=== PATIENT | male | born 1960 | race Caucasian/White ===

== ENCOUNTER 2022-03-08 15:06 | Inpatient (IN) | payer BC ==
[~2022-03-08] VITALS: Ht 175.3 cm; Wt 80.7 kg
[~2022-03-08 15:06] MED LIST: ACET-2081 PO; ASPI-612 PO; DOXY25TA PO
[2022-03-08] MEDS ORDERED: KETOROLAC TROMETHAMINE 30 MG INJ IM ONE (15:30)
[2022-03-08] MEDS ORDERED: KETOROLAC TROMETHAMINE 30 MG INJ ONE (15:39)
[2022-03-08] MEDS ORDERED: BUPR1FIL SL ×2 (16:38→18:39)
[2022-03-08] MEDS ORDERED: NALO1DIS2 IM (16:38)
[2022-03-08] MEDS ORDERED: ALPR2TAB7 PO (16:38)
[2022-03-08] MEDS ORDERED: LIDOCAINE 5% PATCH TD ONE (17:15)
[2022-03-08] MEDS ORDERED: ACETAMINOPHEN ES 500 MG TABLET PO ONE (17:15)
[2022-03-08 17:27] LABS: POTASSIUM 3.8 mmol/L (3.5-5.1)
[2022-03-08 17:54] LABS: HEMATOCRIT 44.6 % (36.7-47.1); MEAN CORPUSCULAR HEMOGLOBIN 33.2 uug (23.8-33.4); MEAN CORPUSCULAR VOLUME 98.4 fL (73.0-96.2); PLATELET COUNT (AUTO) 257 K/uL (152-348)
[2022-03-08] MEDS ORDERED: PROP40TA7 PO (18:39)
[2022-03-08] MEDS ORDERED: PRIM50TA27 PO (18:39)
[2022-03-08] MEDS ORDERED: MORPHINE SULFATE 4 MG/1 ML DISP.SYRIN IV ONE (18:45)
--- NOTE | 2022-03-08 18:50 | NUR ---
Dr. Chery on panel call with Belen Grimm NP.
[2022-03-08] MEDS ORDERED: MORPHINE SULFATE 2 MG/1 ML DISP.SYRIN ONE (18:56)
[2022-03-08] MEDS ORDERED: MORPHINE SULFATE 4 MG/1 ML DISP.SYRIN ONE (18:56)
[2022-03-08] MEDS ORDERED: REMEDY ESSENTIAL ZINC PASTE 113 GM TP PRN (19:45)
[2022-03-08] MEDS ORDERED: MAGNESIUM HYDROXIDE 30 ML LIQUID UDC PO PRN (19:45)
[2022-03-08] MEDS ORDERED: ACETAMINOPHEN 325 MG TABLET PO PRN (19:45)
[2022-03-08] MEDS ORDERED: IV D5 1/2 NS 1000 ML 1,000 ML IV PRN (19:45)
[2022-03-08] MEDS ORDERED: NALOXONE HCL 0.4 MG/ML AMPUL IV PRN (20:00)
--- NOTE | 2022-03-08 20:59 | NUR ---
Report given to Henna RICHMOND
[2022-03-08] MEDS ORDERED: HYDROMORPHONE 2 MG/1 ML DISP.SYRIN IV PRN (22:00)
[2022-03-08] MEDS ORDERED: HYDROMORPHONE 1 MG/1 ML DISP.SYRIN ONE (22:01)
[2022-03-08] MEDS ORDERED: ALPRAZOLAM 0.5 MG TABLET ONE (22:10)
[2022-03-08] MEDS: ALPRAZOLAM 0.5 MG TABLET PO SCH (22:12)
[2022-03-08 23:37] VITALS: BP 127/73
[2022-03-09] MEDS: HYDROMORPHONE 1 MG/1 ML DISP.SYRIN IV PRN ×3 (00:26→10:34)
[2022-03-09 04:00] VITALS: BP 150/81
[2022-03-09 07:06] LABS: HEMATOCRIT 44.6 % (36.7-47.1); MEAN CORPUSCULAR HEMOGLOBIN 33.3 uug (23.8-33.4); MEAN CORPUSCULAR VOLUME 98.1 fL (73.0-96.2); PLATELET COUNT (AUTO) 232 K/uL (152-348)
[2022-03-09 07:17] LABS: MAGNESIUM 2.2 mg/dL (1.8-2.4); PHOSPHOROUS 3.8 mg/dL (2.5-4.9); POTASSIUM 4.1 mmol/L (3.5-5.1)
--- NOTE | 2022-03-09 07:22 | NUR ---
SHIFT REPORT; REPORT GIVEN BY ER NURSE MAGNUS PT IS ALERT AND ORIENTED X4 PT WAS GOING TO GET THE MAIL FROM DRIVE FELL AND BROKE RT HUMERUS. PT IS NPO SCHEDULED FOR SURGERY THIS AM BY DOCTOR MANOJ. PT HAS IVF OF D51/2NS INFUSING AT 50ML AND HOUR NO SIGNS ADVERSE REACTION NOTED. NO SIGNS OF SKIN BREAKDOWN IV IS THE LEFT HAND 20G. PT LAST DOSE OF DILAUDID GIVEN AT 0558 AND CHECKED AT 0628 NO ADVERSE REACTION FROM MEDICATION WILL ENDORSE TO AM NURSE
[2022-03-09 07:29] LABS: THYROID STIMULATING HORMONE 2.135 mIU/mL (0.358-3.740)
[2022-03-09] MEDS: PROPRANOLOL HCL 40 MG TABLET PO SCH ×2 (09:00→18:17)
[2022-03-09] MEDS: PRIMIDONE 50 MG TABLET PO SCH ×2 (09:00→18:12)
[2022-03-09] MEDS: ALPRAZOLAM 0.5 MG TABLET PO SCH ×2 (09:00→21:41)
--- NOTE | 2022-03-09 10:00 | NUR ---
Belen Grimm TRANSPORTATION MECHANIC in the unit, per TRANSPORTATION MECHANIC hold PO meds for now since NPO prior scheduled surgery.
[2022-03-09] MEDS ORDERED: VANCOMYCIN 1000 MG VIAL ONE (10:03)
[2022-03-09] MEDS: PANTOPRAZOLE SODIUM 40 MG VIAL IV SCH (10:37)
[2022-03-09] MEDS ORDERED: LORAZEPAM 2 MG/1 ML VIAL IV PRN (11:00)
[2022-03-09] MEDS ORDERED: HYDROMORPHONE 1 MG/1 ML DISP.SYRIN IV PRN (11:02)
[2022-03-09] MEDS ORDERED: ATOR40TA PO (11:21)
[2022-03-09] MEDS ORDERED: FLUO20CA36 PO (11:21)
[2022-03-09] MEDS ORDERED: PANT40TA49 PO (11:21)
[2022-03-09] MEDS ORDERED: CLON0.1T PO (11:21)
[2022-03-09] MEDS: NICOTINE 14 MG/24HR PATCH TD SCH (11:30)
[2022-03-09 11:36] VITALS: BP 142/77
[2022-03-09] MEDS ORDERED: HYDROMORPHONE 2 MG/1 ML DISP.SYRIN ONE (11:54)
[2022-03-09] MEDS ORDERED: MIDAZOLAM HCL 2 MG/2 ML VIAL ONE (11:55)
[2022-03-09] MEDS ORDERED: ROCURONIUM BROMIDE 50 MG/5 ML VIAL ONE (11:55)
[2022-03-09] MEDS ORDERED: GLYCOPYRROLATE 0.2 MG/ML VIAL ONE ×2 (13:30)
[2022-03-09] MEDS ORDERED: KETOROLAC TROMETHAMINE 30 MG INJ ONE (13:30)
[2022-03-09] MEDS ORDERED: LIDOCAINE-MPF 2% 5 ML VIAL ONE (13:30)
[2022-03-09] MEDS ORDERED: CEFAZOLIN 1 G VIAL ONE ×2 (13:30)
[2022-03-09] MEDS ORDERED: ONDANSETRON 4 MG/2 ML VIAL ONE ×2 (13:30→13:52)
[2022-03-09] MEDS ORDERED: NEOSTIGMINE METHYLSULFATE 10 MG/10 ML VIAL ONE (13:30)
[2022-03-09] MEDS ORDERED: PROPOFOL 200 MG/20 ML BOTTLE ONE ×2 (13:30)
[2022-03-09] MEDS ORDERED: DEXAMETHASONE SOD PHOSPHATE 4 MG INJ ONE (13:30)
[2022-03-09] MEDS ORDERED: HYDROMORPHONE 1 MG/1 ML DISP.SYRIN ONE ×2 (13:41→14:18)
[2022-03-09] MEDS ORDERED: IV D5W-0.45% NS +20 KCL 1,000 ML IV ONE (14:31)
--- NOTE | 2022-03-09 14:55 | NUR ---
Patient back in the room S/P right hip bipolar replacement. He is awake, alert, oriented x4, not in any form of distress on 2LPM via nasal cannula. He denies any pain or discomfort at this time. VS stable. Surgical dressing intact and dry. Abduction pillow in place.
[2022-03-09 15:43] VITALS: BP 131/82
[2022-03-09 19:21] VITALS: BP 154/88
[2022-03-09] MEDS: MORPHINE SULFATE 4 MG/1 ML DISP.SYRIN IV PRN (19:51)
[2022-03-09] MEDS: CEFAZOLIN 1 G in IV DEXTROSE 5% 50 ML IV SCH (21:41)
[2022-03-09] MEDS: ATORVASTATIN 40 MG TABLET PO SCH (21:41)
[2022-03-10] MEDS: MORPHINE SULFATE 4 MG/1 ML DISP.SYRIN IV PRN ×3 (02:54→19:50)
--- NOTE | 2022-03-10 05:13 | NUR ---
SHIFT NOTE PT IS ALERT AND ORIENTEDX4 PT HAS IS STATUS POST RT HIP BIPOLAR REPLACEMENT. PT HAS ABDUCTOR PILLOWS AND SCD TOLERATING WELL PLT HAD 1500 OF JEAN-PIERRE URINE DURING WHOLE SHIFT PT GIVEN PAIN MEDICATION OF 4MG OF MORPHINE TOLERATED WELL NO ADVERSE REACTION FROM MEDICATION AND ANTIBIOTIC.PT LINEN AN BED CHANGED PT WATCHED UP NO SIGNS OF DISTRESS NOTEDL
[2022-03-10] MEDS: CEFAZOLIN 1 G in IV DEXTROSE 5% 50 ML IV SCH (06:12)
[2022-03-10 07:24] LABS: CREATININE 0.9 mg/dL (0.6-1.3); POTASSIUM 4.3 mmol/L (3.5-5.1)
[2022-03-10 07:29] LABS: HEMATOCRIT 40.4 % (36.7-47.1); MEAN CORPUSCULAR HEMOGLOBIN 33.4 uug (23.8-33.4); MEAN CORPUSCULAR VOLUME 99.2 fL (73.0-96.2); PLATELET COUNT (AUTO) 205 K/uL (152-348)
[2022-03-10] MEDS ORDERED: PANTOPRAZOLE SODIUM 40 MG TABLET.DR PO SCH (09:00)
[2022-03-10] MEDS ORDERED: CLONIDINE HCL 0.1 MG TABLET PO SCH (09:00)
[2022-03-10] MEDS ORDERED: ALPRAZOLAM 0.5 MG TABLET PO SCH (09:00)
[2022-03-10] MEDS: PROPRANOLOL HCL 20 MG TABLET PO SCH ×2 (09:21→17:08)
[2022-03-10] MEDS: FLUOXETINE HCL 20 MG CAPSULE PO SCH (09:21)
[2022-03-10] MEDS: PANTOPRAZOLE SODIUM 40 MG VIAL IV SCH (09:21)
[2022-03-10] MEDS: NICOTINE 14 MG/24HR PATCH TD SCH (09:21)
[2022-03-10] MEDS: PRIMIDONE 50 MG TABLET PO SCH ×2 (09:21→17:05)
[2022-03-10 11:37] VITALS: BP 129/69
[2022-03-10] MEDS: HYDROMORPHONE 1 MG/1 ML DISP.SYRIN IV PRN ×2 (12:20→17:08)
[2022-03-10] MEDS: METHOCARBAMOL 500 MG TABLET PO SCH ×2 (13:42→17:05)
[2022-03-10 16:00] VITALS: BP 138/74
[2022-03-10] MEDS: RIVAROXABAN 10 MG TABLET PO SCH (17:05)
[2022-03-10 20:00] VITALS: BP 157/82
[2022-03-10] MEDS: ONDANSETRON 4 MG/2 ML VIAL IV PRN (20:12)
[2022-03-10] MEDS: ATORVASTATIN 40 MG TABLET PO SCH (21:12)
[2022-03-10] MEDS: ALPRAZOLAM 0.5 MG TABLET PO SCH (21:12)
[2022-03-11] MEDS: MAG HYDROX/AL HYDROX/SIMETH 30 ML LIQUID UDC PO PRN ×3 (01:51→21:18)
[2022-03-11] MEDS: HYDROMORPHONE 1 MG/1 ML DISP.SYRIN IV PRN ×3 (01:53→16:07)
[2022-03-11 04:00] VITALS: BP 157/78
[2022-03-11] MEDS: PANTOPRAZOLE SODIUM 40 MG TABLET.DR PO SCH (06:07)
[2022-03-11] MEDS: POTASSIUM CHLORIDE 20 MEQ in IV D5 1/2 NS 1000 ML 1,000 ML IV PRN (06:07)
[2022-03-11] MEDS: MORPHINE SULFATE 4 MG/1 ML DISP.SYRIN IV PRN (06:09)
[2022-03-11 06:27] LABS: HEMATOCRIT 38.4 % (36.7-47.1); MEAN CORPUSCULAR HEMOGLOBIN 33.8 uug (23.8-33.4); MEAN CORPUSCULAR VOLUME 97.7 fL (73.0-96.2); PLATELET COUNT (AUTO) 189 K/uL (152-348)
[2022-03-11 06:51] LABS: CREATININE 0.9 mg/dL (0.6-1.3); POTASSIUM 3.9 mmol/L (3.5-5.1)
[2022-03-11] MEDS: FLUOXETINE HCL 20 MG CAPSULE PO SCH (08:26)
[2022-03-11] MEDS: PRIMIDONE 50 MG TABLET PO SCH ×2 (08:27→16:05)
[2022-03-11] MEDS: METHOCARBAMOL 500 MG TABLET PO SCH ×3 (08:27→16:05)
[2022-03-11] MEDS: NICOTINE 14 MG/24HR PATCH TD SCH (08:28)
[2022-03-11] MEDS: PROPRANOLOL HCL 20 MG TABLET PO SCH ×2 (08:29→16:05)
[2022-03-11] MEDS: ONDANSETRON 4 MG/2 ML VIAL IV PRN ×2 (09:17→21:18)
[2022-03-11 11:36] VITALS: BP 110/65
[2022-03-11 16:00] VITALS: BP 140/84
[2022-03-11] MEDS: RIVAROXABAN 10 MG TABLET PO SCH (17:23)
--- NOTE | 2022-03-11 19:20 | NUR ---
patient is alert, oriented x4, no sob, respirations are even nonlabored,skin warm and dry to touch, right hip incision dressing is clean and dry, no active bleeding noted at the dressing, patient is tolerating oral meals well, patient stated he does not need the fluids, refused IV fluids, risks and benefits explained, patient verbalized understanding of it. ambulated with PT, tolerated well. no acute distress noted.
[2022-03-11 20:00] VITALS: BP 134/78
[2022-03-11] MEDS: ATORVASTATIN 40 MG TABLET PO SCH (21:18)
[2022-03-11] MEDS: ALPRAZOLAM 0.5 MG TABLET PO SCH (21:18)
[2022-03-12] MEDS: HYDROMORPHONE 1 MG/1 ML DISP.SYRIN IV PRN ×5 (02:14→20:18)
[2022-03-12 03:37] VITALS: BP 130/75
[2022-03-12] MEDS: PANTOPRAZOLE SODIUM 40 MG TABLET.DR PO SCH (06:06)
[2022-03-12 07:26] LABS: HEMATOCRIT 37.7 % (36.7-47.1); MEAN CORPUSCULAR VOLUME 97.6 fL (73.0-96.2); PLATELET COUNT (AUTO) 247 K/uL (152-348)
[2022-03-12] MEDS: PRIMIDONE 50 MG TABLET PO SCH ×2 (08:54→17:21)
[2022-03-12] MEDS: FLUOXETINE HCL 20 MG CAPSULE PO SCH (08:54)
[2022-03-12] MEDS: METHOCARBAMOL 500 MG TABLET PO SCH ×3 (08:54→17:21)
[2022-03-12] MEDS: NICOTINE 14 MG/24HR PATCH TD SCH (08:54)
[2022-03-12] MEDS: PROPRANOLOL HCL 20 MG TABLET PO SCH ×2 (08:58→17:25)
[2022-03-12] MEDS: POTASSIUM CHLORIDE 20 MEQ in IV D5 1/2 NS 1000 ML 1,000 ML IV PRN (10:37)
[2022-03-12 11:45] VITALS: BP 120/78
[2022-03-12] MEDS: ONDANSETRON 4 MG/2 ML VIAL IV PRN (13:31)
[2022-03-12] MEDS: MAG HYDROX/AL HYDROX/SIMETH 30 ML LIQUID UDC PO PRN (13:31)
[2022-03-12 16:21] VITALS: BP 137/79
[2022-03-12] MEDS: RIVAROXABAN 10 MG TABLET PO SCH (17:25)
[2022-03-12 20:00] VITALS: BP 136/84
[2022-03-12] MEDS: ALPRAZOLAM 0.5 MG TABLET PO SCH (20:18)
[2022-03-12] MEDS: ATORVASTATIN 40 MG TABLET PO SCH (20:18)
[2022-03-13] MEDS: HYDROMORPHONE 1 MG/1 ML DISP.SYRIN IV PRN ×4 (02:58→15:20)
[2022-03-13] MEDS: ONDANSETRON 4 MG/2 ML VIAL IV PRN ×2 (02:59→09:28)
[2022-03-13 04:00] VITALS: BP 131/71
[2022-03-13] MEDS: PANTOPRAZOLE SODIUM 40 MG TABLET.DR PO SCH (06:23)
[2022-03-13] MEDS: FLUOXETINE HCL 20 MG CAPSULE PO SCH (08:41)
[2022-03-13] MEDS: NICOTINE 14 MG/24HR PATCH TD SCH (08:42)
[2022-03-13] MEDS: PRIMIDONE 50 MG TABLET PO SCH ×2 (08:42→17:14)
[2022-03-13] MEDS: METHOCARBAMOL 500 MG TABLET PO SCH ×3 (08:42→17:14)
[2022-03-13] MEDS: PROPRANOLOL HCL 20 MG TABLET PO SCH ×2 (08:47→17:18)
[2022-03-13] MEDS: MAG HYDROX/AL HYDROX/SIMETH 30 ML LIQUID UDC PO PRN (09:28)
[2022-03-13 11:16] VITALS: BP 117/61
[2022-03-13 15:07] VITALS: BP 120/72
[2022-03-13] MEDS: RIVAROXABAN 10 MG TABLET PO SCH (17:15)
[2022-03-13 17:18] VITALS: BP 126/73
--- NOTE | 2022-03-13 18:19 | NUR ---
Patient is stable at discharge and transferring via ambulance right now to [facility]
== END 2022-03-13 18:15 | DRG 522 ==
LOC: ER 15:08 → MEDSURG3 17:51
PROVIDERS: ADMIT Registered Nurse; ATTEND Nurse Practitioner Acute Care
PROC: 0SRR0JA Replacement of Right Hip Joint, Femoral Surface with Synthetic Substitute, Uncemented, Open Approach (ICD-10-PCS; principal; 2022-03-09)
DX: S72.001A Fracture of unspecified part of neck of right femur, initial encounter for closed fracture (principal); G89.4 Chronic pain syndrome; I10 Essential (primary) hypertension; D72.829 Elevated white blood cell count, unspecified; G25.0 Essential tremor; F17.210 Nicotine dependence, cigarettes, uncomplicated; M40.204 Unspecified kyphosis, thoracic region; W01.0XXA Fall on same level from slipping, tripping and stumbling without subsequent striking against object, initial encounter; Y92.014 Private driveway to single-family (private) house as the place of occurrence of the external cause; M40.294 Other kyphosis, thoracic region; R00.1 Bradycardia, unspecified; Z79.82 Long term (current) use of aspirin; Z20.822 Contact with and (suspected) exposure to COVID-19
CPT/HCPCS: 36415; 71045; 73501; 73502; 73700; 83735; 84100; 84443; 85025; 85730; 93005; A4649; A4663; A9150; C1776; C9113; G0378; J0690; J1100; J1170; J1885; J2060; J2250; J2270; J2405; J3370; J3480; J3490

== ENCOUNTER 2022-06-08 04:45 | Inpatient (IN) | payer BC ==
[~2022-06-08] VITALS: Ht 172.7 cm; Wt 80.7 kg
[~2022-06-08 04:45] MED LIST changes: -ACET-2081 PO; +ALPR2TAB7 PO; -ASPI-612 PO; +ATOR40TA PO; +BUPR1FIL SL; +CLON0.1T PO; -DOXY25TA PO; +FLUO20CA36 PO; +NALO1DIS2 IM; +PANT40TA49 PO; +PRIM50TA27 PO; +PROP40TA7 PO
--- NOTE | 2022-06-08 04:47 | NUR ---
Dr. Miller at bedside. [facility].
[2022-06-08] MEDS ORDERED: IV NORMAL SALINE 500 ML BAG IV ONE (05:00)
[2022-06-08] MEDS ORDERED: ONDANSETRON 4 MG/2 ML VIAL IV ONE (05:00)
[2022-06-08] MEDS ORDERED: ONDANSETRON 4 MG/2 ML VIAL ONE (05:16)
[2022-06-08 05:19] LABS: HEMATOCRIT 32.7 % (36.7-47.1); MEAN CORPUSCULAR HEMOGLOBIN 30.2 uug (23.8-33.4); MEAN CORPUSCULAR VOLUME 91.6 fL (73.0-96.2); PLATELET COUNT (AUTO) 323 K/uL (152-348)
[2022-06-08 05:28] LABS: CREATININE 1.3 mg/dL (0.6-1.3)
[2022-06-08] MEDS ORDERED: CLON0.1T PO (05:30)
[2022-06-08 05:34] LABS: BILIRUBIN,DIRECT 0.2 mg/dL (0.0-0.2); BILIRUBIN,TOTAL 0.6 mg/dL (0.2-1.0)
--- NOTE | 2022-06-08 06:00 | NUR ---
Dr. Miller has requested a call for Dr. Serrano.
--- NOTE | 2022-06-08 06:45 | NUR ---
Dr. Serrano has not returned the call. Dr. Johnson Miller will call around 0700.
--- NOTE | 2022-06-08 07:00 | NUR ---
Patient still very sleeply from the affects of the fentayl give [employer] by paramedics, but is able to respond when name is called.
--- NOTE | 2022-06-08 07:07 | NUR ---
Report given to BASILIO Schuster.
--- NOTE | 2022-06-08 07:25 | NUR ---
Patient resting comfortably in bed, easily arousable. No acute distress noted. Will continue to monitor patient.
--- NOTE | 2022-06-08 07:30 | NUR ---
Paged Dr. Serrano for doctor to doctor call.
--- NOTE | 2022-06-08 07:54 | NUR ---
Paged Dr. Serrano again for doctor to doctor call. Awaiting a call back.
--- NOTE | 2022-06-08 07:54 | NUR ---
Patient using urinal to urinate.
--- NOTE | 2022-06-08 08:04 | NUR ---
Called [facility] for panel call.
--- NOTE | 2022-06-08 08:39 | NUR ---
Paged Dr. Marshall again for panel call. Awaiting call back.
--- NOTE | 2022-06-08 10:25 | NUR ---
Gave report to BASILIO Stapleton.
--- NOTE | 2022-06-08 10:34 | NUR ---
Patient to go to room 327
--- NOTE | 2022-06-08 11:00 | NUR ---
Patient transferred to telemetry unit accompanied by RN.
[2022-06-08] MEDS: HYDROMORPHONE 1 MG/1 ML DISP.SYRIN IV PRN ×3 (12:32→21:27)
[2022-06-08 16:00] VITALS: BP 127/69
[2022-06-08] MEDS: PRIMIDONE 50 MG TABLET PO SCH (16:38)
[2022-06-08 20:00] VITALS: BP 122/66
[2022-06-08] MEDS ORDERED: ONDANSETRON 4 MG/2 ML VIAL IV PRN (20:15)
[2022-06-08] MEDS ORDERED: ACETAMINOPHEN 650 MG SUPP.RECT RC PRN (20:15)
[2022-06-08] MEDS: ATORVASTATIN 40 MG TABLET PO SCH (21:01)
[2022-06-08] MEDS: ENOXAPARIN SODIUM 40 MG/0.4 ML DISP.SYRIN SQ SCH (21:06)
[2022-06-09] MEDS: HYDROMORPHONE 1 MG/1 ML DISP.SYRIN IV PRN (02:13)
[2022-06-09] MEDS: HYDROMORPHONE 2 MG/1 ML DISP.SYRIN IV PRN ×6 (03:53→20:17)
[2022-06-09 04:00] VITALS: BP 141/70
[2022-06-09] MEDS ORDERED: PANTOPRAZOLE SODIUM 40 MG TABLET.DR PO SCH (07:00)
[2022-06-09 07:22] LABS: HEMATOCRIT 32.1 % (36.7-47.1); MEAN CORPUSCULAR HEMOGLOBIN 29.8 uug (23.8-33.4); MEAN CORPUSCULAR VOLUME 91.5 fL (73.0-96.2); PLATELET COUNT (AUTO) 337 K/uL (152-348)
--- NOTE | 2022-06-09 07:30 | NUR ---
Sleeping, appears comfortable. Tele SR 61
[2022-06-09 07:47] LABS: IRON, SERUM 18 ug/dL (50-175)
[2022-06-09 07:53] LABS: ALANINE AMINOTRANSFERASE 24 U/L (16-63); ALKALINE PHOSPHATASE 133 U/L (50-136); ASPARTATE AMINOTRANSFERASE 26 U/L (15-37); BILIRUBIN,TOTAL 0.3 mg/dL (0.2-1.0); CARBON DIOXIDE 30 mmol/L (21-32); CHLORIDE 106 mmol/L (98-107); CREATININE 0.9 mg/dL (0.6-1.3); GLUCOSE 96 mg/dL (74-106); MAGNESIUM 1.9 mg/dL (1.8-2.4); POTASSIUM 4.3 mmol/L (3.5-5.1); TOTAL PROTEIN, SERUM 6.1 g/dL (6.4-8.2); UREA NITROGEN, BLOOD 14 mg/dL (7-18)
[2022-06-09 07:54] LABS: CHOLESTEROL 99 mg/dL (<200); HDL CHOLESTEROL 33 mg/dL (40-60); TRIGLYCERIDES 58 MG/DL (30-150)
[2022-06-09] MEDS: PRIMIDONE 50 MG TABLET PO SCH ×2 (08:38→17:15)
[2022-06-09] MEDS: PANTOPRAZOLE SODIUM 40 MG VIAL IV SCH (08:38)
[2022-06-09] MEDS: FLUOXETINE HCL 20 MG CAPSULE PO SCH (08:40)
[2022-06-09 11:52] VITALS: BP 143/76
--- NOTE | 2022-06-09 12:30 | NUR ---
Spoke with Dr. Serrano, discussed imaging result and plan of care with orders. X ray right distal femur and venous doppler RLE done at bedside. PRN pain medication given as ordered
--- NOTE | 2022-06-09 14:35 | NUR ---
X ray right distal femur showed fracture. Dr. Serrano informed with orders for consent ORIF right distal femur fracture, signed by patient
[2022-06-09] MEDS: NICOTINE 14 MG/24HR PATCH TD SCH (15:46)
[2022-06-09 15:50] VITALS: BP 124/71
--- NOTE | 2022-06-09 15:50 | NUR ---
Reports of pain RLE, medicated with Dilaudid 2 mg IV. Nicotine patch started as ordered
--- NOTE | 2022-06-09 18:45 | NUR ---
Voided freely per urinal. Repositioned in bed comfortably.
[2022-06-09] MEDS: ATORVASTATIN 40 MG TABLET PO SCH (20:20)
[2022-06-09] MEDS: ENOXAPARIN SODIUM 40 MG/0.4 ML DISP.SYRIN SQ SCH (20:20)
[2022-06-09 20:38] VITALS: BP 113/56
[2022-06-09] MEDS: ALPRAZOLAM 0.5 MG TABLET PO PRN (23:15)
[2022-06-10 00:21] VITALS: BP 124/64
[2022-06-10] MEDS: HYDROMORPHONE 2 MG/1 ML DISP.SYRIN IV PRN ×5 (02:35→20:57)
--- NOTE | 2022-06-10 02:45 | NUR ---
Pt complaining of 8/10 pain on RLE. Dilaudid 2mg given as ordered. Started NPO at midnight.
[2022-06-10 04:20] VITALS: BP 118/61
[2022-06-10 06:59] LABS: HEMATOCRIT 30.6 % (36.7-47.1); MEAN CORPUSCULAR HEMOGLOBIN 29.9 uug (23.8-33.4); MEAN CORPUSCULAR VOLUME 90.8 fL (73.0-96.2); PLATELET COUNT (AUTO) 314 K/uL (152-348)
[2022-06-10 07:14] LABS: CREATININE 0.7 mg/dL (0.6-1.3); MAGNESIUM 1.9 mg/dL (1.8-2.4); PHOSPHOROUS 3.2 mg/dL (2.5-4.9); POTASSIUM 4.1 mmol/L (3.5-5.1)
[2022-06-10 08:00] VITALS: BP 134/72
[2022-06-10] MEDS: PANTOPRAZOLE SODIUM 40 MG VIAL IV SCH (08:36)
[2022-06-10] MEDS: FLUOXETINE HCL 20 MG CAPSULE PO SCH (08:36)
[2022-06-10] MEDS: PRIMIDONE 50 MG TABLET PO SCH ×2 (08:36→17:12)
[2022-06-10] MEDS: NICOTINE 14 MG/24HR PATCH TD SCH (09:10)
--- NOTE | 2022-06-10 09:24 | NUR ---
pt was given Dilaudid 2mg [id number] for rig leg pain. will reassess in 3mins for effectiveness.
[2022-06-10] MEDS ORDERED: BUPIVACAINE PF 0.5% 30 ML VIAL ONE (09:26)
--- NOTE | 2022-06-10 09:37 | NUR ---
pt was pickers material handlers by surgery team. vital wnl. pt will undergone orif of R distal femur.
[2022-06-10] MEDS ORDERED: HYDROMORPHONE 2 MG/1 ML DISP.SYRIN ONE (10:31)
[2022-06-10] MEDS ORDERED: KETAMINE HCL 500 MG/10 ML INJ ONE (10:31)
[2022-06-10] MEDS ORDERED: FAMOTIDINE. 20 MG/2 ML VIAL IV ONE (10:32)
[2022-06-10] MEDS ORDERED: BUPIVACAINE HCL/DEX-WATER/PF 0.75%, 2 ML AMPUL ONE (10:36)
[2022-06-10] MEDS ORDERED: LABETALOL HCL 100 MG/20 ML VIAL ONE (11:51)
[2022-06-10] MEDS ORDERED: HYDROMORPHONE 1 MG/1 ML DISP.SYRIN ONE ×2 (13:07→13:35)
[2022-06-10] MEDS ORDERED: MORPHINE SULFATE 2 MG/1 ML DISP.SYRIN ONE (14:07)
[2022-06-10] MEDS ORDERED: MORPHINE SULFATE 4 MG/1 ML DISP.SYRIN IV PRN (14:15)
[2022-06-10] MEDS ORDERED: HYDROCODONE/APAP 10-325 MG TABLET PO PRN (14:15)
[2022-06-10] MEDS ORDERED: OXYCODONE HCL 5 MG TABLET ONE (14:35)
--- NOTE | 2022-06-10 15:10 | NUR ---
SURGERY DONE. PT ARRIVED AT THE UNIT. REPORT RECEIVED FROM ARMIDA RICHMOND. S/P R ORIF FEMUR DISTAL. PER SURGERY PT WAS GIVEN DILAUDID 2MG ,MORPHINE 4MG AND OXYR 5MG FOR PAIN MANAGEMENT. PT VITALS WNL. NO RESPIRATORY DISTRESS NOTED. PT IS CALM AND RELAX. ICE PACK ON R HIP IN PLACED. CONTINUE ANCEF 1G Q8HR X 3 DOSE. 2L NC FOR COMFORT. NWB R LEG PER SURGEON. WILL CONT TO ACCESS.
[2022-06-10] MEDS: IV D5W-0.45% NS +20 KCL 1,000 ML IV PRN (15:44)
[2022-06-10 15:56] VITALS: BP 136/65
--- NOTE | 2022-06-10 17:47 | NUR ---
SHIFT NOTE. PT ALERT ORIENTED. NO ACUTE DISTRESS NOTED. DENIES SOB. PT COMPLAIN OF PAIN AT THE SURGERY SITE. DILAUDID 2MG [id number] WAS GIVEN FOR PAIN MANAGEMENT. PT WENT TO SURGERY FOR ORIF OF DISTAL FEMUR. SURGICAL DRESSING INTACT NOT SATURATED. NWB ON RIGHT LEG PER MD. NEW ORDER WAS CARRIED OUT. CALL LIGHT WITH IN REACH. BED LOCKED. ALL NEEDS METS. WILL ENDORSED TO NOC SHIFT.
[2022-06-10 20:00] VITALS: BP 114/69
[2022-06-10] MEDS ORDERED: SUCCINYLCHOLINE CHLORIDE 200 MG/10 ML VIAL IV ONE (20:00)
[2022-06-10] MEDS ORDERED: KETOROLAC TROMETHAMINE 30 MG INJ IM ONE (20:00)
[2022-06-10] MEDS ORDERED: GLYCOPYRROLATE 0.2 MG/ML VIAL IJ ONE (20:00)
[2022-06-10] MEDS ORDERED: DEXAMETHASONE SOD PHOSPHATE 4 MG INJ IV ONE (20:00)
[2022-06-10] MEDS ORDERED: PROPOFOL 200 MG/20 ML BOTTLE IV ONE (20:00)
[2022-06-10] MEDS ORDERED: ONDANSETRON 4 MG/2 ML VIAL IV ONE (20:00)
[2022-06-10] MEDS ORDERED: CEFAZOLIN 1 G VIAL IM ONE (20:00)
[2022-06-10] MEDS: CEFAZOLIN 2 G in IV DEXTROSE 5% 100 ML IV SCH (20:56)
[2022-06-10] MEDS: ATORVASTATIN 40 MG TABLET PO SCH (20:57)
[2022-06-10] MEDS: ALPRAZOLAM 0.5 MG TABLET PO PRN (23:03)
[2022-06-11] VITALS: BP 127/63
[2022-06-11] MEDS: HYDROMORPHONE 2 MG/1 ML DISP.SYRIN IV PRN ×8 (00:06→23:29)
[2022-06-11] MEDS: CEFAZOLIN 2 G in IV DEXTROSE 5% 100 ML IV SCH (03:35)
[2022-06-11 08:00] VITALS: BP 134/59
[2022-06-11] MEDS: FLUOXETINE HCL 20 MG CAPSULE PO SCH (09:11)
[2022-06-11] MEDS: PANTOPRAZOLE SODIUM 40 MG VIAL IV SCH (09:11)
[2022-06-11] MEDS: PRIMIDONE 50 MG TABLET PO SCH ×2 (09:11→16:31)
[2022-06-11] MEDS: NICOTINE 14 MG/24HR PATCH TD SCH (09:12)
[2022-06-11] MEDS: ENOXAPARIN SODIUM 40 MG/0.4 ML DISP.SYRIN SQ SCH (09:12)
[2022-06-11 11:50] VITALS: BP 121/79
[2022-06-11] MEDS ORDERED: HYDR-3972 PO (12:18)
[2022-06-11] MEDS ORDERED: ENOX40DI SQ (12:18)
[2022-06-11] MEDS: IV D5W-0.45% NS +20 KCL 1,000 ML IV PRN (12:35)
--- NOTE | 2022-06-11 13:03 | NUR ---
pending transper to [facility]. auth pending per CM.
[2022-06-11 16:46] VITALS: BP 145/74
--- NOTE | 2022-06-11 18:30 | NUR ---
SHIFT NOTE. PT AOX4. NO ACUTE DISTRESS NOTED. PT EVAL DONE. 2 PERSON MAX ASSIST . NWB ON RLE PRECAUTION. TOLERATED SEVERAL STEPS WITH FWW. ADMINISTERED DILAUDID 2MG Q3HR PRN FOR PAIN MANAGEMENT. POSSIBLE DISCHARGE ALISHA TO [facility] F/U W/ CM. CALL LIGHT WITHIN REACH. BED LOCKED. WILL CONT TO MONITOR.
--- NOTE | 2022-06-11 19:30 | NUR ---
Received Pt from Day shift. Pt is A&Ox3 and is cooperative. SR on tele. Rm air. Pt hasn't had a BM in three days. Safety measures in place. Will continue to monitor.
[2022-06-11 20:00] VITALS: BP 133/69
[2022-06-11] MEDS: ALPRAZOLAM 0.5 MG TABLET PO PRN (20:06)
[2022-06-11] MEDS: ATORVASTATIN 40 MG TABLET PO SCH (20:07)
[2022-06-12] VITALS: BP 126/68
[2022-06-12] MEDS: HYDROMORPHONE 2 MG/1 ML DISP.SYRIN IV PRN ×4 (02:40→12:30)
[2022-06-12] MEDS: IV D5W-0.45% NS +20 KCL 1,000 ML IV PRN (02:49)
[2022-06-12 04:00] VITALS: BP 140/68
--- NOTE | 2022-06-12 06:46 | NUR ---
End of Shift Note: Pt is A&Ox3 and is cooperative. SR on tele. Rm air. Pt didn't have a BM this shift. Safety measures in place. Will continue to monitor.
[2022-06-12] MEDS ORDERED: PANTOPRAZOLE SODIUM 40 MG TABLET.DR PO SCH (07:00)
[2022-06-12] MEDS: FLUOXETINE HCL 20 MG CAPSULE PO SCH (08:32)
[2022-06-12] MEDS: PRIMIDONE 50 MG TABLET PO SCH (08:32)
[2022-06-12] MEDS: NICOTINE 14 MG/24HR PATCH TD SCH (08:32)
[2022-06-12] MEDS: ENOXAPARIN SODIUM 40 MG/0.4 ML DISP.SYRIN SQ SCH (08:32)
[2022-06-12 09:13] LABS: HEMATOCRIT 29.8 % (36.7-47.1); MEAN CORPUSCULAR VOLUME 91.9 fL (73.0-96.2); PLATELET COUNT (AUTO) 312 K/uL (152-348)
[2022-06-12 09:34] LABS: CREATININE 0.7 mg/dL (0.6-1.3); PHOSPHOROUS 3.5 mg/dL (2.5-4.9); POTASSIUM 4.5 mmol/L (3.5-5.1)
[2022-06-12] MEDS ORDERED: FERR325T28 PO (10:49)
[2022-06-12] MEDS ORDERED: FERROUS SULFATE 325 MG TABEC PO SCH (11:00)
[2022-06-12 11:59] VITALS: BP 119/57
--- NOTE | 2022-06-12 15:12 | NUR ---
Pt. discharged to [facility]. No c/o pain. Noted to be stable upon the discharge. IV line removed. All personal belonging returned to the patient and all necessary document signed. Report given to Samantha at [facility]. Was transferred on a gurney with two transporters.
== END 2022-06-12 15:20 | DRG 480 ==
LOC: ER 04:50 → TELE3 10:35 → MEDSURG3 06-12 07:55
PROVIDERS: ADMIT Internal Medicine; ATTEND Nurse Practitioner Acute Care
PROC: 0QSB04Z Reposition Right Lower Femur with Internal Fixation Device, Open Approach (ICD-10-PCS; principal; 2022-06-10)
DX: S72.401A Unspecified fracture of lower end of right femur, initial encounter for closed fracture (principal); N17.0 Acute kidney failure with tubular necrosis; M97.11XA Periprosthetic fracture around internal prosthetic right knee joint, initial encounter; D68.69 Other thrombophilia; Z96.641 Presence of right artificial hip joint; E78.5 Hyperlipidemia, unspecified; Z79.891 Long term (current) use of opiate analgesic; G25.0 Essential tremor; F41.9 Anxiety disorder, unspecified; D64.9 Anemia, unspecified; W18.30XA Fall on same level, unspecified, initial encounter; Y92.000 Kitchen of unspecified non-institutional (private) residence as the place of occurrence of the external cause; G89.4 Chronic pain syndrome; I10 Essential (primary) hypertension; Z91.81 History of falling; Z74.09 Other reduced mobility; M19.90 Unspecified osteoarthritis, unspecified site; Z87.891 Personal history of nicotine dependence; Z20.822 Contact with and (suspected) exposure to COVID-19
CPT/HCPCS: 36415; 71045; 72170; 73501; 73551; 83550; 83735; 84100; 84443; 84484; 85025; 85730; 93005; 93307; A4649; A4663; C1713; C9113; G0378; J0330; J0690; J1100; J1170; J1650; J1885; J2270; J2405; J3490; J7040